=== PATIENT | female | born 1940 | race African-American/Black ===

== ENCOUNTER 2022-08-14 13:35 | Observation (INO) | payer BC, OTHER ==
[2022-08-14 14:13] VITALS: BMI 33.9
[2022-08-14 19:24] LABS: BASO % 0.7 % (0-2.0); HEMATOCRIT 42.1 % (32.4-45.2); HEMOGLOBIN 13.3 GM/dL (10.7-15.3); LYMPH % 13.8 % (8-40); MCH 26.6 pg (25.7-33.7); MCHC 31.5 g/dl (32.0-36.0); MEAN CELL VOLUME 84.4 fl (80-96); MEAN PLT VOLUME 9.9 fl (7.5-11.1); NEUT % 73.5 % (42.8-82.8); PLATELET COUNT 177 10^3/uL (134-434); RDW 14.9 % (11.6-15.6); WHITE BLOOD COUNT 9.3 K/mm3 (4.0-10.0)
[2022-08-14 19:32] LABS: INR 1.44 (0.83-1.09); PROTHROMBIN TIME (PATIENT) 16.6 SEC (9.7-13.0)
[2022-08-14 19:34] LABS: ACTIVATED PTT 50.8 SECONDS (25.2-36.5)
[2022-08-14 19:53] LABS: CALCIUM 8.9 mg/dL (8.5-10.1)
[2022-08-14 19:54] LABS: ALBUMIN 3.6 g/dl (3.4-5.0); BLOOD UREA NITROGEN 18.9 mg/dL (7-18)
[2022-08-14 19:57] LABS: CREATININE 0.6 mg/dL (0.55-1.3)
[2022-08-14 19:58] LABS: BILIRUBIN,TOTAL 0.7 mg/dL (0.2-1); TOT PROT 7.5 g/dl (6.4-8.2)
[2022-08-15] MEDS ORDERED: ACETAMINOPHEN 325 MG TABLET (FP) PO PRN ×2 (05:22→13:54)
[2022-08-15] MEDS ORDERED: MELATONIN 5 MG TABLETS PO ONE (05:24)
[2022-08-15] MEDS ORDERED: MELATONIN 5 MG TABLETS ONE (05:25)
[2022-08-15 08:18] LABS: BASO % 0.5 % (0-2.0); EOS % 3.2 % (0-4.5); HEMATOCRIT 40.5 % (32.4-45.2); HEMOGLOBIN 12.9 GM/dL (10.7-15.3); MCH 27.4 pg (25.7-33.7); MCHC 31.8 g/dl (32.0-36.0); MEAN CELL VOLUME 86.1 fl (80-96); MEAN PLT VOLUME 9.9 fl (7.5-11.1); MONO % 9.3 % (3.8-10.2); PLATELET COUNT 166 10^3/uL (134-434); RBC 4.71 M/mm3 (3.60-5.2); WHITE BLOOD COUNT 8.1 K/mm3 (4.0-10.0)
[2022-08-15] MEDS ORDERED: GABAPENTIN 100 MG CAPSULE PO SCH (10:00)
[2022-08-15] MEDS ORDERED: METOPROLOL TARTRATE 25 MG TABLET (FP) PO SCH (10:00)
[2022-08-15 11:54] LABS: BLOOD UREA NITROGEN 20.2 mg/dL (7-18); CALCIUM 8.7 mg/dL (8.5-10.1); CREATININE 0.7 mg/dL (0.55-1.3)
[2022-08-15] MEDS ORDERED: METOPROLOL TARTRATE 25 MG TABLET (FP) ONE (12:04)
[2022-08-15] MEDS ORDERED: FUROSEMIDE 40 MG TABLET (FP) ONE (12:04)
[2022-08-15] MEDS ORDERED: GABAPENTIN 100 MG CAPSULE ONE (12:05)
[2022-08-15] MEDS ORDERED: LIDOCAINE 5% TOPICAL PATCH ONE (12:05)
[2022-08-15] MEDS: LIDOCAINE 5% TOPICAL PATCH TP SCH (12:10)
[2022-08-15] MEDS: FUROSEMIDE 40 MG TABLET (FP) PO SCH (12:10)
[2022-08-15] MEDS: RIVAROXABAN 20 MG TABLET PO SCH (17:09)
[2022-08-15] MEDS: METOPROLOL TARTRATE 25 MG TABLET (FP) PO SCH (21:29)
[2022-08-15] MEDS: GABAPENTIN 100 MG CAPSULE PO SCH (21:30)
[2022-08-15] MEDS: LIDOCAINE PATCH REMOVAL MC SCH (21:30)
[2022-08-15] MEDS: CYCLOBENZAPRINE HCL 5 MG TABLET PO SCH (21:30)
[2022-08-15] MEDS: DOCUSATE SODIUM 100 MG CAPSULE (FP) PO SCH (21:30)
[2022-08-15] MEDS: ARTIFICIAL TEARS (POLYVINYL ALCOHOL) OPTH DROPS OU SCH (22:47)
[2022-08-16 09:07] LABS: EPI CELLS 11 /uL (0-25.1); HYALINE CASTS 1 /uL (0-3.1); PH,URINE 5.5 (5.0-8.0); URINE APPEARANCE CLOUDY; URINE BACTERIA >9,000 /uL (0-1359); URINE BILIRUBIN NEGATIVE (NEGATIVE); URINE COLOR YELLOW; URINE GLUCOSE (UA) NEGATIVE (NEGATIVE); URINE KETONE NEGATIVE (NEGATIVE); URINE LEUK ESTERASE 3+ (NEGATIVE); URINE NITRITE POSITIVE (NEGATIVE); URINE PROTEIN NEGATIVE (NEGATIVE); URINE RBC 12 /uL (0-23.9); URINE WBC 662 /uL (0-25.8)
[2022-08-16] MEDS ORDERED: PATIENT'S OWN MEDICATION (NON-FORMULARY) (Lidocaine [Lidocaine] 1 EACH Adh..Patch) TD SCH (10:00)
[2022-08-16] MEDS: GABAPENTIN 100 MG CAPSULE PO SCH ×2 (10:55→21:39)
[2022-08-16] MEDS: DOCUSATE SODIUM 100 MG CAPSULE (FP) PO SCH ×2 (10:55→21:40)
[2022-08-16] MEDS: LIDOCAINE 5% TOPICAL PATCH TP SCH (10:56)
[2022-08-16] MEDS: METOPROLOL TARTRATE 25 MG TABLET (FP) PO SCH ×2 (10:56→21:39)
[2022-08-16] MEDS: FUROSEMIDE 40 MG TABLET (FP) PO SCH (10:56)
[2022-08-16] MEDS: ARTIFICIAL TEARS (POLYVINYL ALCOHOL) OPTH DROPS OU SCH ×2 (11:26→21:44)
[2022-08-16] MEDS: RIVAROXABAN 20 MG TABLET PO SCH (18:28)
[2022-08-16] MEDS: CYCLOBENZAPRINE HCL 5 MG TABLET PO SCH (21:40)
[2022-08-16] MEDS: LIDOCAINE PATCH REMOVAL MC SCH (21:44)
[2022-08-17] MEDS ORDERED: INSULIN (LEVEMIR) 100 UNITS/ML UNITS SQ ONE (06:25)
[2022-08-17] MEDS ORDERED: INSULIN (NOVOLOG) ASPART 100 UNITS/ML 10ML VIAL ONE (06:25)
[2022-08-17] MEDS: LIDOCAINE 5% TOPICAL PATCH TP SCH (09:44)
[2022-08-17] MEDS: METOPROLOL TARTRATE 25 MG TABLET (FP) PO SCH ×2 (09:46→21:19)
[2022-08-17] MEDS: GABAPENTIN 100 MG CAPSULE PO SCH ×2 (09:46→21:19)
[2022-08-17] MEDS: DOCUSATE SODIUM 100 MG CAPSULE (FP) PO SCH ×2 (09:46→21:19)
[2022-08-17] MEDS: ARTIFICIAL TEARS (POLYVINYL ALCOHOL) OPTH DROPS OU SCH ×2 (09:48→21:22)
[2022-08-17] MEDS: FUROSEMIDE 40 MG TABLET (FP) PO SCH (10:22)
[2022-08-17] MEDS: CEFUROXIME AXETIL 500 MG TABLET PO SCH ×2 (11:56→21:19)
[2022-08-17] MEDS: RIVAROXABAN 20 MG TABLET PO SCH (17:06)
[2022-08-17] MEDS: LIDOCAINE PATCH REMOVAL MC SCH (21:19)
[2022-08-17] MEDS: CYCLOBENZAPRINE HCL 5 MG TABLET PO SCH (21:19)
[2022-08-18] MEDS: DOCUSATE SODIUM 100 MG CAPSULE (FP) PO SCH (10:07)
[2022-08-18] MEDS: METOPROLOL TARTRATE 25 MG TABLET (FP) PO SCH (10:07)
[2022-08-18] MEDS: FUROSEMIDE 40 MG TABLET (FP) PO SCH (10:07)
[2022-08-18] MEDS: CEFUROXIME AXETIL 500 MG TABLET PO SCH (10:07)
[2022-08-18] MEDS: LIDOCAINE 5% TOPICAL PATCH TP SCH (10:07)
[2022-08-18] MEDS: GABAPENTIN 100 MG CAPSULE PO SCH (10:11)
[2022-08-18] MEDS: ARTIFICIAL TEARS (POLYVINYL ALCOHOL) OPTH DROPS OU SCH (10:13)
[2022-08-18 14:18] VITALS: BP 113/73; PULSE 91; RESP 18; TEMP 98.3
== END 2022-08-18 15:48 ==
LOC: JER 13:35 → JERBED 18:24 → INTOOBSV 18:24 → J6S 08-15 16:41
PROVIDERS: ADMIT Internal Medicine; ATTEND Internal Medicine
DX: M79.605 Pain in left leg (principal); I25.10 Atherosclerotic heart disease of native coronary artery without angina pectoris; M87.9 Osteonecrosis, unspecified; R26.2 Difficulty in walking, not elsewhere classified; M79.606 Pain in leg, unspecified; Z91.011 Allergy to milk products; Z91.041 Radiographic dye allergy status; E66.8 Other obesity; Z68.33 Body mass index [BMI] 33.0-33.9, adult; M19.90 Unspecified osteoarthritis, unspecified site; G89.29 Other chronic pain; Z86.73 Personal history of transient ischemic attack (TIA), and cerebral infarction without residual deficits; Z79.01 Long term (current) use of anticoagulants; R60.0 Localized edema; W18.39XA Other fall on same level, initial encounter; Y93.89 Activity, other specified; Y92.89 Other specified places as the place of occurrence of the external cause
CPT/HCPCS: 0241U-QW; 36415; 70450-TC; 71045-TC-FY; 72170-TC-FY; 73562-TC-LT-FY; 73590-TC-LT-FY; 73610-TC-LT-FY; 73630-TC-LT; 80048; 80053; 81003; 82962; 84484; 85025; 85610; 85730; 86140; 87086; 87186; 93005; 93010; 93970-TC; 97116-GP; 97162-GP; 99285-25; C9803-CS; G0378; U0003; U0005

== ENCOUNTER 2022-09-22 22:29 | Emergency (ER) | payer OTHER ==
[2022-09-22 22:48] VITALS: BMI 43.9
[2022-09-23] MEDS ORDERED: ACETAMINOPHEN 1000 MG/100 ML BAG IVPB ONE (00:02)
[2022-09-23] MEDS ORDERED: MAG HYDROX/AL HYDROX/SIMETH 30 ML UNIT-DOSE CUP PO ONE (00:02)
[2022-09-23] MEDS ORDERED: FAMOTIDINE 20 MG/50 ML IVPB 20 MG/50 ML MG IVPB ONE ×2 (00:03→00:35)
[2022-09-23] MEDS ORDERED: ACETAMINOPHEN INJECTION 100 ML IVPB ONE (00:34)
[2022-09-23 02:17] LABS: BASO % 0.5 % (0-2.0); EOS % 2.7 % (0-4.5); HEMOGLOBIN 12.8 GM/dL (10.7-15.3); LYMPH % 19.8 % (8-40); MCH 27.8 pg (25.7-33.7); MCHC 32.7 g/dl (32.0-36.0); MEAN CELL VOLUME 84.9 fl (80-96); MEAN PLT VOLUME 10.1 fl (7.5-11.1); MONO % 12.6 % (3.8-10.2); NEUT % 64.4 % (42.8-82.8); PLATELET COUNT 166 10^3/uL (134-434); RDW 14.4 % (11.6-15.6); WHITE BLOOD COUNT 8.4 K/mm3 (4.0-10.0)
[2022-09-23 02:25] LABS: INR 2.01 (0.83-1.09); PROTHROMBIN TIME (PATIENT) 23.1 SEC (9.7-13.0)
[2022-09-23 02:27] LABS: ACTIVATED PTT 49.7 SECONDS (25.2-36.5)
[2022-09-23 02:39] LABS: BLOOD UREA NITROGEN 18.4 mg/dL (7-18); CALCIUM 8.8 mg/dL (8.5-10.1); MAGNESIUM 2.1 mg/dL (1.8-2.4)
[2022-09-23 02:40] LABS: ALBUMIN 3.5 g/dl (3.4-5.0)
[2022-09-23 02:43] LABS: CREATININE 0.8 mg/dL (0.55-1.3)
[2022-09-23 02:44] LABS: BILIRUBIN,TOTAL 0.7 mg/dL (0.2-1); TOT PROT 7.3 g/dl (6.4-8.2)
[2022-09-23] MEDS ORDERED: POTASSIUM CHLORIDE ORAL LIQUID 20 MEQ/15 ML PO ONE (02:47)
[2022-09-23 02:48] LABS: N-TERMINAL BNP 59.3 pg/ml (5-450)
[2022-09-23] MEDS ORDERED: POTASSIUM CHLORIDE ORAL LIQUID 20 MEQ/15 ML ONE (03:05)
[2022-09-23 04:04] LABS: EPI CELLS 12 /uL (0-25.1); HYALINE CASTS 2 /uL (0-3.1); URINE APPEARANCE CLEAR; URINE BACTERIA 1054 /uL (0-1359); URINE BILIRUBIN NEGATIVE (NEGATIVE); URINE COLOR YELLOW; URINE GLUCOSE (UA) NEGATIVE (NEGATIVE); URINE KETONE TRACE (NEGATIVE); URINE LEUK ESTERASE 2+ (NEGATIVE); URINE NITRITE NEGATIVE (NEGATIVE); URINE PROTEIN NEGATIVE (NEGATIVE); URINE WBC 322 /uL (0-25.8)
[2022-09-23] MEDS ORDERED: NITROFURANTOIN MACROCRYSTAL 50 MG CAPSULE (FP) PO SCH (04:30)
[2022-09-23 07:30] VITALS: BP 121/71; PULSE 74; RESP 18; TEMP 98.2
[2022-09-23 08:01] LABS: URINE RBC 21.6 /uL (0-23.9)
== END 2022-09-23 09:12 | disposition home or self-care (01) ==
LOC: JER 22:29
PROC: 3E033GC Introduction of Other Therapeutic Substance into Peripheral Vein, Percutaneous Approach (ICD-10-PCS; principal; 2022-09-22)
PROC: 3E033NZ Introduction of Analgesics, Hypnotics, Sedatives into Peripheral Vein, Percutaneous Approach (ICD-10-PCS; 2022-09-22)
DX: R07.0 Pain in throat (principal); N30.00 Acute cystitis without hematuria; G89.4 Chronic pain syndrome; R26.2 Difficulty in walking, not elsewhere classified; Z20.822 Contact with and (suspected) exposure to COVID-19
CPT/HCPCS: 0241U-QW; 36415; 70450-TC; 71045-TC-FY; 73502-TC-LT-FY; 73552-TC-LT-FY; 73560-TC-LT-FY; 74176-TC; 80053; 81003; 83605; 83735; 83880; 84484; 85025; 85610; 85730; 87086; 93005; 93010; 93971-TC; 99285-25

== ENCOUNTER 2022-10-03 11:23 | Inpatient (IN) | payer OTHER ==
[2022-10-03 14:18] LABS: BASO % 0.5 % (0-2.0); EOS % 2.5 % (0-4.5); HEMATOCRIT 40.2 % (32.4-45.2); LYMPH % 16.8 % (8-40); MCH 27.4 pg (25.7-33.7); MCHC 32.3 g/dl (32.0-36.0); MEAN PLT VOLUME 10.3 fl (7.5-11.1); MONO % 13.4 % (3.8-10.2); NEUT % 66.8 % (42.8-82.8); PLATELET COUNT 140 10^3/uL (134-434); RBC 4.73 M/mm3 (3.60-5.2); RDW 14.3 % (11.6-15.6); WHITE BLOOD COUNT 6.3 K/mm3 (4.0-10.0)
[2022-10-03 14:36] LABS: CALCIUM 8.5 mg/dL (8.5-10.1)
[2022-10-03 14:37] LABS: ALBUMIN 3.2 g/dl (3.4-5.0); BLOOD UREA NITROGEN 10.5 mg/dL (7-18); MAGNESIUM 1.8 mg/dL (1.8-2.4)
[2022-10-03 14:40] LABS: CREATININE 0.6 mg/dL (0.55-1.3)
[2022-10-03 14:41] LABS: BILIRUBIN,TOTAL 0.7 mg/dL (0.2-1)
[2022-10-03 14:45] LABS: N-TERMINAL BNP 99.8 pg/ml (5-450)
[2022-10-03] MEDS ORDERED: POTASSIUM CHLORIDE ORAL LIQUID 20 MEQ/15 ML PO ONE (15:38)
[2022-10-03] MEDS ORDERED: POTASSIUM CHLORIDE ORAL LIQUID 20 MEQ/15 ML ONE ×2 (15:51→19:45)
[2022-10-03 16:13] LABS: EPI CELLS 8 /uL (0-25.1); HYALINE CASTS 0 /uL (0-3.1); URINE APPEARANCE CLEAR; URINE BACTERIA 331 /uL (0-1359); URINE BILIRUBIN NEGATIVE (NEGATIVE); URINE COLOR YELLOW; URINE GLUCOSE (UA) NEGATIVE (NEGATIVE); URINE KETONE NEGATIVE (NEGATIVE); URINE LEUK ESTERASE 1+ (NEGATIVE); URINE NITRITE NEGATIVE (NEGATIVE); URINE PROTEIN NEGATIVE (NEGATIVE); URINE RBC 9 /uL (0-23.9); URINE WBC 28 /uL (0-25.8)
[2022-10-03] MEDS ORDERED: CEPHALEXIN MONOHYDRATE 500 MG CAPSULE (UD) PO ONE (17:53)
[2022-10-03] MEDS ORDERED: CEPHALEXIN MONOHYDRATE 500 MG CAPSULE (UD) ONE (18:21)
[2022-10-03] MEDS ORDERED: MAGNESIUM SULF 50% (8.12 MEQ/2 ML-1 GM VIAL) IVPB ONE (19:26)
[2022-10-03] MEDS ORDERED: POTASSIUM CHLORIDE TABS 20 MEQ TABLET.ER (FP) PO ONE (19:27)
[2022-10-03] MEDS ORDERED: MAGNESIUM 1GM/D5W - 1 GM/100 ML IVPB IVPB ONE (19:45)
[2022-10-03] MEDS ORDERED: ACETAMINOPHEN 1000 MG/100 ML BAG IVPB PRN (20:35)
[2022-10-04] MEDS: INSULIN SLIDING SCALE (NOVOLOG) 1 VIAL SQ SCH ×5 (00:02→21:57)
[2022-10-04] MEDS ORDERED: CEFTRIAXONE 1 GM/50 ML BAG ONE (02:15)
[2022-10-04] MEDS: CEFTRIAXONE 1 GM in DEXTROSE 5%-WATER - 50 ML IVPB SCH (02:16)
[2022-10-04 03:47] VITALS: BMI 37.9
[2022-10-04] MEDS ORDERED: ALBUTEROL SO4 HFA INHALER IH PRN (05:37)
[2022-10-04] MEDS: CYCLOBENZAPRINE HCL 5 MG TABLET PO SCH (10:42)
[2022-10-04] MEDS: GABAPENTIN 100 MG CAPSULE PO SCH ×2 (10:42→21:50)
[2022-10-04] MEDS: METOPROLOL TARTRATE 25 MG TABLET (FP) PO SCH ×2 (10:42→21:51)
[2022-10-04] MEDS: FUROSEMIDE 40 MG TABLET (FP) PO SCH (10:42)
[2022-10-04] MEDS: ARTIFICIAL TEARS (POLYVINYL ALCOHOL) OPTH DROPS OU SCH ×2 (10:42→21:51)
[2022-10-04] MEDS: LIDOCAINE 5% TOPICAL PATCH TP SCH (10:43)
[2022-10-04 11:22] LABS: BASO % 0.3 % (0-2.0); EOS % 2.9 % (0-4.5); HEMATOCRIT 40.1 % (32.4-45.2); LYMPH % 14.9 % (8-40); MCH 27.5 pg (25.7-33.7); MCHC 32.5 g/dl (32.0-36.0); MEAN CELL VOLUME 84.7 fl (80-96); MEAN PLT VOLUME 9.9 fl (7.5-11.1); MONO % 11.7 % (3.8-10.2); NEUT % 70.2 % (42.8-82.8); PLATELET COUNT 147 10^3/uL (134-434); RBC 4.73 M/mm3 (3.60-5.2); RDW 14.4 % (11.6-15.6); WHITE BLOOD COUNT 6.2 K/mm3 (4.0-10.0)
[2022-10-04 11:55] LABS: POTASSIUM 3.4 mmol/L (3.5-5.1)
[2022-10-04 12:03] LABS: CALCIUM 8.8 mg/dL (8.5-10.1)
[2022-10-04 12:06] LABS: CREATININE 0.7 mg/dL (0.55-1.3)
[2022-10-04] MEDS ORDERED: NAPH,MB-DB/K PH,MBDB POWDER PACKET PO ONE (14:38)
[2022-10-04] MEDS: RIVAROXABAN 20 MG TABLET PO SCH (17:15)
[2022-10-04] MEDS ORDERED: ACETAMINOPHEN 325 MG TABLET (FP) PO PRN (20:32)
[2022-10-04] MEDS: LIDOCAINE PATCH REMOVAL MC SCH (21:51)
[2022-10-04] MEDS: DOCUSATE SODIUM 100 MG CAPSULE (FP) PO SCH (21:51)
[2022-10-05] MEDS: INSULIN SLIDING SCALE (NOVOLOG) 1 VIAL SQ SCH ×4 (06:09→22:17)
[2022-10-05 09:40] LABS: POTASSIUM 3.1 mmol/L (3.5-5.1)
[2022-10-05 09:43] LABS: BLOOD UREA NITROGEN 13.3 mg/dL (7-18); CALCIUM 7.9 mg/dL (8.5-10.1); MAGNESIUM 1.9 mg/dL (1.8-2.4)
[2022-10-05 09:47] LABS: CREATININE 0.6 mg/dL (0.55-1.3); PHOSPHOROUS 2.8 mg/dL (2.5-4.9)
[2022-10-05] MEDS: GABAPENTIN 100 MG CAPSULE PO SCH ×2 (10:47→22:16)
[2022-10-05] MEDS: METOPROLOL TARTRATE 25 MG TABLET (FP) PO SCH ×2 (10:47→22:16)
[2022-10-05] MEDS: FUROSEMIDE 40 MG TABLET (FP) PO SCH (10:47)
[2022-10-05] MEDS: CYCLOBENZAPRINE HCL 5 MG TABLET PO SCH (10:48)
[2022-10-05] MEDS: ARTIFICIAL TEARS (POLYVINYL ALCOHOL) OPTH DROPS OU SCH ×2 (10:50→22:16)
[2022-10-05] MEDS: CEFTRIAXONE 1 GM in DEXTROSE 5%-WATER - 50 ML IVPB SCH (10:52)
[2022-10-05] MEDS: LIDOCAINE 5% TOPICAL PATCH TP SCH (11:35)
[2022-10-05] MEDS ORDERED: POTASSIUM CHLORIDE ORAL LIQUID 20 MEQ/15 ML PO ONE (15:53)
[2022-10-05] MEDS: RIVAROXABAN 20 MG TABLET PO SCH (17:14)
[2022-10-05] MEDS: LIDOCAINE PATCH REMOVAL MC SCH (22:16)
[2022-10-05] MEDS: DOCUSATE SODIUM 100 MG CAPSULE (FP) PO SCH (22:16)
[2022-10-06] MEDS: INSULIN SLIDING SCALE (NOVOLOG) 1 VIAL SQ SCH ×4 (06:01→21:06)
[2022-10-06 08:41] LABS: POTASSIUM 3.4 mmol/L (3.5-5.1)
[2022-10-06 08:45] LABS: BLOOD UREA NITROGEN 14.3 mg/dL (7-18); CALCIUM 8.5 mg/dL (8.5-10.1)
[2022-10-06 08:48] LABS: CREATININE 0.6 mg/dL (0.55-1.3)
[2022-10-06] MEDS: GABAPENTIN 100 MG CAPSULE PO SCH ×2 (10:24→21:06)
[2022-10-06] MEDS: METOPROLOL TARTRATE 25 MG TABLET (FP) PO SCH ×2 (10:25→21:06)
[2022-10-06] MEDS: LIDOCAINE 5% TOPICAL PATCH TP SCH (10:25)
[2022-10-06] MEDS: FUROSEMIDE 40 MG TABLET (FP) PO SCH (10:25)
[2022-10-06] MEDS: ARTIFICIAL TEARS (POLYVINYL ALCOHOL) OPTH DROPS OU SCH ×2 (10:25→21:07)
[2022-10-06] MEDS: CYCLOBENZAPRINE HCL 5 MG TABLET PO SCH (10:25)
[2022-10-06] MEDS: RIVAROXABAN 20 MG TABLET PO SCH (18:38)
[2022-10-06] MEDS: DOCUSATE SODIUM 100 MG CAPSULE (FP) PO SCH (21:06)
[2022-10-06] MEDS: LIDOCAINE PATCH REMOVAL MC SCH (21:07)
[2022-10-07] MEDS: INSULIN SLIDING SCALE (NOVOLOG) 1 VIAL SQ SCH ×4 (08:06→21:29)
[2022-10-07] MEDS: LIDOCAINE 5% TOPICAL PATCH TP SCH (10:40)
[2022-10-07] MEDS: FUROSEMIDE 40 MG TABLET (FP) PO SCH (10:53)
[2022-10-07] MEDS: CYCLOBENZAPRINE HCL 5 MG TABLET PO SCH (10:53)
[2022-10-07] MEDS: GABAPENTIN 100 MG CAPSULE PO SCH ×2 (10:53→22:00)
[2022-10-07] MEDS: METOPROLOL TARTRATE 25 MG TABLET (FP) PO SCH ×2 (10:53→22:00)
[2022-10-07] MEDS: ARTIFICIAL TEARS (POLYVINYL ALCOHOL) OPTH DROPS OU SCH ×2 (11:06→21:59)
[2022-10-07] MEDS: POLYETHYLENE GLYCOL (HEALTHYLAX) 3350 17 GM PACKET PO SCH ×2 (17:16→22:00)
[2022-10-07] MEDS: RIVAROXABAN 20 MG TABLET PO SCH (17:16)
[2022-10-07] MEDS: LIDOCAINE PATCH REMOVAL MC SCH (22:00)
[2022-10-07] MEDS: SENNOSIDES 8.6MG TABLET (FP) PO SCH (22:00)
[2022-10-07] MEDS: DOCUSATE SODIUM 100 MG CAPSULE (FP) PO SCH (22:00)
[2022-10-08] MEDS: INSULIN SLIDING SCALE (NOVOLOG) 1 VIAL SQ SCH ×3 (06:14→17:00)
[2022-10-08] MEDS: GABAPENTIN 100 MG CAPSULE PO SCH (09:50)
[2022-10-08] MEDS: FUROSEMIDE 40 MG TABLET (FP) PO SCH (09:51)
[2022-10-08] MEDS: CYCLOBENZAPRINE HCL 5 MG TABLET PO SCH (09:51)
[2022-10-08] MEDS: ARTIFICIAL TEARS (POLYVINYL ALCOHOL) OPTH DROPS OU SCH (09:51)
[2022-10-08] MEDS: POLYETHYLENE GLYCOL (HEALTHYLAX) 3350 17 GM PACKET PO SCH (09:51)
[2022-10-08] MEDS: LIDOCAINE 5% TOPICAL PATCH TP SCH (09:51)
[2022-10-08] MEDS: SENNOSIDES 8.6MG TABLET (FP) PO SCH (09:51)
[2022-10-08] MEDS: METOPROLOL TARTRATE 25 MG TABLET (FP) PO SCH (09:51)
[2022-10-08 13:42] VITALS: BP 104/55; PULSE 87; RESP 18; TEMP 98.2
[2022-10-08] MEDS: RIVAROXABAN 20 MG TABLET PO SCH (18:16)
== END 2022-10-08 19:14 | DRG 556 ==
LOC: JER 11:23 → JERBED 20:06 → J5S 10-04 02:55 → OBSVTOIN 10-05 14:47
PROVIDERS: ADMIT Internal Medicine; ATTEND Internal Medicine
DX: R26.2 Difficulty in walking, not elsewhere classified (principal); M87.852 Other osteonecrosis, left femur; J44.9 Chronic obstructive pulmonary disease, unspecified; E87.6 Hypokalemia; I25.10 Atherosclerotic heart disease of native coronary artery without angina pectoris; E11.42 Type 2 diabetes mellitus with diabetic polyneuropathy; M50.30 Other cervical disc degeneration, unspecified cervical region; E83.39 Other disorders of phosphorus metabolism; E78.5 Hyperlipidemia, unspecified; R60.0 Localized edema; I12.9 Hypertensive chronic kidney disease with stage 1 through stage 4 chronic kidney disease, or unspecified chronic kidney disease; E11.22 Type 2 diabetes mellitus with diabetic chronic kidney disease; N18.9 Chronic kidney disease, unspecified; Z86.73 Personal history of transient ischemic attack (TIA), and cerebral infarction without residual deficits; W06.XXXA Fall from bed, initial encounter; Y92.092 Bedroom in other non-institutional residence as the place of occurrence of the external cause; Y99.8 Other external cause status
CPT/HCPCS: 0241U-QW; 36415; 70450-TC; 70486-TC; 71045-TC-FY; 72125-TC; 72170-TC-FY; 73030-TC-LT-FY; 80048; 80053; 81003; 82962; 83735; 83880; 84100; 84132; 84484; 85025; 87086; 93005; 93010; 97116-GP; 99285-25; C9803-CS; G0378; U0003; U0005

== ENCOUNTER 2023-12-06 18:29 | Observation (INO) | payer OTHER ==
[2023-12-06 19:28] VITALS: BMI 30.2
[2023-12-06 21:01] LABS: BASO % 0.5 % (0-2.0); EOS % 2.6 % (0-4.5); HEMATOCRIT 37.4 % (32.4-45.2); HEMOGLOBIN 12.2 GM/dL (10.7-15.3); MCH 28.5 pg (25.7-33.7); MCHC 32.6 g/dl (32.0-36.0); MEAN CELL VOLUME 87.4 fl (80-96); NEUT % 69.9 % (42.8-82.8); PLATELET COUNT 186 10^3/uL (134-434); RBC 4.28 M/mm3 (3.60-5.2); RDW 14.4 % (11.6-15.6); WHITE BLOOD COUNT 7.7 K/mm3 (4.0-10.0)
[2023-12-06 21:43] LABS: ALBUMIN 3.4 g/dl (3.4-5.0); BILIRUBIN,TOTAL 0.7 mg/dL (0.2-1); BLOOD UREA NITROGEN 20.8 mg/dL (7-18); CALCIUM 8.5 mg/dL (8.5-10.1); CREATININE 0.8 mg/dL (0.55-1.3); POTASSIUM 5.1 mmol/L (3.5-5.1); TOT PROT 7.2 g/dl (6.4-8.2)
[2023-12-07 02:20] LABS: EPI CELLS 3 /uL (0-25.1); HYALINE CASTS 0 /uL (0-3.1); PH,URINE 5.5 (5.0-8.0); URINE APPEARANCE CLEAR; URINE BACTERIA 128 /uL (0-1359); URINE BILIRUBIN NEGATIVE (NEGATIVE); URINE COLOR YELLOW; URINE GLUCOSE (UA) NEGATIVE (NEGATIVE); URINE KETONE TRACE (NEGATIVE); URINE LEUK ESTERASE TRACE (NEGATIVE); URINE NITRITE NEGATIVE (NEGATIVE); URINE PROTEIN NEGATIVE (NEGATIVE); URINE UROBILINOGEN 0.2 mg/dL (0.2-1.0); URINE WBC 9 /uL (0-25.8)
[2023-12-07 03:37] LABS: URINE RBC 37.2 /uL (0-23.9)
[2023-12-07] MEDS: INSULIN ASPART SLIDING SCALE (NOVOLOG) 1 VIAL SQ SCH (06:08)
[2023-12-07 06:32] LABS: BASO % 0.8 % (0-2.0); EOS % 2.2 % (0-4.5); HEMATOCRIT 35.2 % (32.4-45.2); HEMOGLOBIN 11.4 GM/dL (10.7-15.3); LYMPH % 17.6 % (8-40); MCH 28.4 pg (25.7-33.7); MCHC 32.3 g/dl (32.0-36.0); MEAN CELL VOLUME 87.9 fl (80-96); MEAN PLT VOLUME 9.2 fl (7.5-11.1); MONO % 11.4 % (3.8-10.2); PLATELET COUNT 170 10^3/uL (134-434); WHITE BLOOD COUNT 6.5 K/mm3 (4.0-10.0)
[2023-12-07] MEDS: FUROSEMIDE 40 MG TABLET (FP) PO SCH (06:43)
[2023-12-07 07:00] LABS: POTASSIUM 3.9 mmol/L (3.5-5.1)
[2023-12-07 07:02] LABS: CALCIUM 8.6 mg/dL (8.5-10.1)
[2023-12-07 07:03] LABS: ALBUMIN 3.3 g/dl (3.4-5.0); BLOOD UREA NITROGEN 17.4 mg/dL (7-18); MAGNESIUM 1.9 mg/dL (1.8-2.4)
[2023-12-07 07:05] LABS: CREATININE 0.7 mg/dL (0.55-1.3)
[2023-12-07 07:06] LABS: PHOSPHOROUS 3.6 mg/dL (2.5-4.9)
[2023-12-07 07:07] LABS: BILIRUBIN,TOTAL 0.8 mg/dL (0.2-1); TOT PROT 6.3 g/dl (6.4-8.2)
[2023-12-07] MEDS: ASPIRIN COATED 81 MG TABLET.EC PO SCH (10:22)
[2023-12-07] MEDS: METOPROLOL TARTRATE 25 MG TABLET (FP) PO SCH (10:22)
[2023-12-07] MEDS: LIDOCAINE 5% TOPICAL PATCH TP SCH (10:22)
[2023-12-07] MEDS: GABAPENTIN 100 MG CAPSULE PO SCH (10:22)
[2023-12-07] MEDS: ENOXAPARIN NA (PORCINE) 40 MG/0.4 ML DISP.SYRIN SQ SCH (10:22)
[2023-12-07] MEDS: ARTIFICIAL TEARS OPHTHALMIC DROPS OU SCH (10:23)
[2023-12-07] MEDS: CYCLOBENZAPRINE HCL 5 MG TABLET PO SCH (12:01)
[2023-12-07] MEDS: FUROSEMIDE 20 MG TABLET (FP) PO SCH (14:38)
[2023-12-07] MEDS: LIDOCAINE PATCH REMOVAL MC SCH (21:32)
[2023-12-08 08:00] LABS: HEMATOCRIT 33.4 % (32.4-45.2); HEMOGLOBIN 10.8 GM/dL (10.7-15.3); MCH 28.2 pg (25.7-33.7); MCHC 32.2 g/dl (32.0-36.0); MEAN CELL VOLUME 87.7 fl (80-96); MEAN PLT VOLUME 9.2 fl (7.5-11.1); PLATELET COUNT 164 10^3/uL (134-434); RBC 3.81 M/mm3 (3.60-5.2); RDW 13.9 % (11.6-15.6)
[2023-12-08 08:13] LABS: POTASSIUM 3.4 mmol/L (3.5-5.1)
[2023-12-08 08:15] LABS: CALCIUM 7.9 mg/dL (8.5-10.1)
[2023-12-08 08:16] LABS: BLOOD UREA NITROGEN 17.6 mg/dL (7-18); MAGNESIUM 1.8 mg/dL (1.8-2.4)
[2023-12-08 08:19] LABS: CREATININE 0.6 mg/dL (0.55-1.3); PHOSPHOROUS 3.4 mg/dL (2.5-4.9)
[2023-12-08 10:17] VITALS: BP 122/64; PULSE 89; RESP 15; TEMP 97.8
[2023-12-08] MEDS: MAGNESIUM SULFATE IN WATER 2 GM/50 ML IVPB IVPB ONE (11:27)
[2023-12-08] MEDS: POTASSIUM CHLORIDE ORAL LIQUID 20 MEQ/15 ML PO ONE (11:27)
== END 2023-12-08 11:43 ==
LOC: JER 18:29 → JERBED 22:12 → J4S 12-07 03:43
PROVIDERS: ADMIT Internal Medicine; ATTEND Internal Medicine
PROC: 3E023GC Introduction of Other Therapeutic Substance into Muscle, Percutaneous Approach (ICD-10-PCS; principal; 2023-12-06)
DX: R55 Syncope and collapse (principal); E11.9 Type 2 diabetes mellitus without complications; W18.39XA Other fall on same level, initial encounter; Y93.89 Activity, other specified; Y92.092 Bedroom in other non-institutional residence as the place of occurrence of the external cause; E11.40 Type 2 diabetes mellitus with diabetic neuropathy, unspecified; I25.10 Atherosclerotic heart disease of native coronary artery without angina pectoris; G89.29 Other chronic pain; I11.0 Hypertensive heart disease with heart failure; J44.9 Chronic obstructive pulmonary disease, unspecified; M19.90 Unspecified osteoarthritis, unspecified site; R60.0 Localized edema; M87.9 Osteonecrosis, unspecified; I67.1 Cerebral aneurysm, nonruptured; G62.9 Polyneuropathy, unspecified; Z86.73 Personal history of transient ischemic attack (TIA), and cerebral infarction without residual deficits; Z91.011 Allergy to milk products; Z91.041 Radiographic dye allergy status
CPT/HCPCS: 36415; 70450-TC; 71045-TC-FY; 72125-TC; 73521-TC-FY; 80048; 80053; 80061; 81003; 82550; 82962; 83735; 84100; 84443; 84484; 85025; 85027; 87086; 87635; 93005; 93010; 93306-TC; 93880-TC; 96372; 97116-GP; 97161-GP; 99285-25; G0378